=== PATIENT | male | born 1985 | race Caucasian/White ===

== ENCOUNTER 2022-12-28 11:07 | Observation (INO) | payer OTHER ==
[~2022-12-28] VITALS: Ht 172.7 cm; Wt 74.4 kg
[2022-12-28] MEDS ORDERED: 0.9%NACL 1000ML 1,000 ML IV ONE (11:30)
[2022-12-28] MEDS ORDERED: ONDANSETRON 4MG INJ IVP ONE (11:30)
[2022-12-28 12:02] LABS: BASOPHILS % (AUTO) 0.3 % (0.0-5.0); EOSINOPHILS % (AUTO) 0.2 % (0.0-8.0); HEMATOCRIT 38.4 % (42-54); LYMPHOCYTES % (AUTO) 11.3 % (21.0-51.0); MEAN CORPUSCULAR HEMOGLOBIN 32.5 pg (27.0-33.0); MEAN CORPUSCULAR HGB CONC 34.4 g/dL (32.0-36.0); MEAN CORPUSCULAR VOLUME 94.6 fL (79-99); MONOCYTES % (AUTO) 6.9 % (3.0-13.0); PLATELET COUNT (AUTO) 270 K/uL (130-400); RED BLOOD CELL COUNT(AUTO) 4.06 MIL/uL (4.50-6.20); RED CELL DISTRIBUTION WIDTH 12.6 % (11.0-15.5); WHITE BLOOD COUNT (AUTO) 9.2 K/uL (4.8-10.8)
[2022-12-28 12:24] LABS: ALBUMIN 3.5 g/dL (3.5-5.0); TOTAL PROTEIN, SERUM 6.9 g/dL (6.0-8.3)
[2022-12-28 12:26] LABS: POTASSIUM 2.6 mmol/L (3.5-5.1)
[2022-12-28] MEDS ORDERED: KCL 20 MEQ ERTAB PO PRN (12:30)
[2022-12-28] MEDS ORDERED: LIDOCAINE HCL-MPF 1% 2ML VIAL IV PRN (12:30)
[2022-12-28] MEDS ORDERED: POTASSIUM CHLORIDE 10% ELIXIR 20 MEQ/15 ML UDCUP PO PRN (12:30)
[2022-12-28] MEDS ORDERED: IOHEXOL 350 MG/ML 100ML INFUS..BTL IV ONE (12:31)
[2022-12-28] MEDS: POTASSIUM CHLORIDE 20MEQ/100ML 100 ML IV PRN ×2 (12:58→15:02)
[2022-12-28] MEDS ORDERED: HYDRALAZINE 20MG/ML VIAL IV PRN (16:00)
[2022-12-28] MEDS ORDERED: ACETAMINOPHEN 325 MG TAB PO PRN (16:00)
[2022-12-28] MEDS ORDERED: LACTULOSE 20 GM/30 ML UDCUP PO PRN (16:00)
[2022-12-28] MEDS ORDERED: LABETALOL 20MG SYG IV PRN (16:00)
[2022-12-28] MEDS ORDERED: ONDANSETRON 4MG INJ IVP PRN (16:00)
[2022-12-28] MEDS: INSULIN HUMULIN R 100 UNIT/ML 3ML SQ SCH ×2 (16:30→21:00)
[2022-12-28 19:11] LABS: APPEARANCE,URINE CLEAR (CLEAR); BILIRUBIN,URINE NEGATIVE (NEGATIVE); COLOR,URINE YELLOW (YELLOW); GLUCOSE, URINE (UA) NEGATIVE (NEGATIVE); KETONES,URINE NEGATIVE (NEGATIVE); LEUKOCYTE ESTERASE ,URINE NEGATIVE Leu/uL (NEGATIVE); NITRATE,URINE NEGATIVE (NEGATIVE); OCCULT BLOOD,URINE NEGATIVE (NEGATIVE); PROTEIN,URINE NEGATIVE (NEGATIVE); UROBILINOGEN,URINE 3 mg/dL (0.2-1.0)
[2022-12-28 19:12] LABS: MUCUS,URINE RARE LPF (None Seen); SQUAMOUS EPITHELIAL CELL,UR RARE /HPF (0-2)
[2022-12-28 19:18] LABS: AMPHET/METH SCREEN,URINE NEGATIVE (NEGATIVE); BARBITURATE SCREEN, URINE NEGATIVE (NEGATIVE); BENZODIAZEPINES SCREEN,URINE NEGATIVE (NEGATIVE); CANNABINOID SCREEN,URINE NEGATIVE (NEGATIVE); COCAINE SCREEN,URINE POSITIVE (NEGATIVE); OPIATE SCREEN,URINE NEGATIVE (NEGATIVE); PHENCYCLIDINE SCREEN,URINE NEGATIVE (NEGATIVE)
[2022-12-28 20:30] VITALS: BP 128/72
[2022-12-28] MEDS ORDERED: 0.9%NACL 1000ML 1,000 ML IV SCH (20:30)
[2022-12-28] MEDS ORDERED: FAMOTIDINE 20MG TAB PO SCH (21:00)
[2022-12-28] MEDS: ZOSYN 3.375GM +NS 50ML IVPB SCH (21:22)
[2022-12-28] MEDS: 0.9%NACL 50ML IV SCH (21:23)
[2022-12-29] VITALS: BP 118/62
[2022-12-29 04:00] VITALS: BP 130/78
[2022-12-29] MEDS: 0.9%NACL 50ML IV SCH (04:40)
[2022-12-29] MEDS: ZOSYN 3.375GM +NS 50ML IVPB SCH (04:40)
[2022-12-29 05:35] LABS: BASOPHILS % (AUTO) 0.4 % (0.0-5.0); EOSINOPHILS % (AUTO) 0.9 % (0.0-8.0); HEMATOCRIT 39.4 % (42-54); LYMPHOCYTES % (AUTO) 27.3 % (21.0-51.0); MEAN CORPUSCULAR HEMOGLOBIN 31.7 pg (27.0-33.0); MEAN CORPUSCULAR HGB CONC 33.2 g/dL (32.0-36.0); MEAN CORPUSCULAR VOLUME 95.4 fL (79-99); MONOCYTES % (AUTO) 8.9 % (3.0-13.0); NEUTROPHILS % (AUTO) 62.1 % (40.0-77.0); PLATELET COUNT (AUTO) 248 K/uL (130-400); RED BLOOD CELL COUNT(AUTO) 4.13 MIL/uL (4.50-6.20); WHITE BLOOD COUNT (AUTO) 7.8 K/uL (4.8-10.8)
[2022-12-29 06:03] LABS: CREATININE 1.1 mg/dL (0.5-1.5); MAGNESIUM 2.2 mg/dL (1.80-2.40); PHOSPHORUS 2.6 mg/dL (2.5-4.9); POTASSIUM 3.3 mmol/L (3.5-5.1)
[2022-12-29] MEDS: INSULIN HUMULIN R 100 UNIT/ML 3ML SQ SCH (06:49)
[2022-12-29] MEDS: POTASSIUM CHLORIDE 20MEQ/100ML 100 ML IV PRN (06:59)
== END 2022-12-29 08:15 | disposition left against medical advice (07) ==
LOC: EDH 11:07 → EDHIP 11:08 → 3AH 20:30
PROVIDERS: ADMIT Internal Medicine; ATTEND Internal Medicine
DX: K81.9 Cholecystitis, unspecified (principal); K83.1 Obstruction of bile duct; R07.89 Other chest pain; E87.6 Hypokalemia; D18.03 Hemangioma of intra-abdominal structures; K40.90 Unilateral inguinal hernia, without obstruction or gangrene, not specified as recurrent; F14.90 Cocaine use, unspecified, uncomplicated; E87.8 Other disorders of electrolyte and fluid balance, not elsewhere classified; F17.200 Nicotine dependence, unspecified, uncomplicated; Z79.899 Other long term (current) drug therapy
CPT/HCPCS: 96361; 96365; 96366 ×2; 96375; 96367; 99285; 84484; 80053; 80305; 83690; 85025 ×2; 82948 ×2; 81001; 36415 ×2; 71045; 74177; 76700; 93005; 83735; 84100; 80048; 84145; G0378 ×16; J7030; J2405; J3480 ×3; J2543 ×2; Q9967